=== PATIENT | male | born 1960 | race Caucasian/White ===

== ENCOUNTER → 2016-12-11 | Outpatient (CLI) | payer BC ==
--- NOTE | 2016-12-11 14:37 | US ---
EXAMINATION TYPE: US venous doppler duplex LE RT DATE OF EXAM: 12/11/2016 1:34 PM COMPARISON: NONE CLINICAL HISTORY: RT Foot Pain M79.671. Rt foot swelling SIDE PERFORMED: Right TECHNIQUE: The bilateral lower extremity deep venous system is examined utilizing real time linear a rray sonography with graded compression, doppler sonography and color-flow sonography. VESSELS IMAGED: External Iliac Vein (EIV) Common Femoral Vein Deep Femoral Vein Greater Saphenous Vein * Femoral Vein Popliteal Vein Small Saphenous Vein * Proximal Calf Veins (* superficial vessels) Right Leg: Appears negative for DVT Left Leg: Not imaged IMPRESSION: 1. Right lower extremity negative for deep venous thrombosis.
== END | disposition home or self-care (01) ==
LOC: RADUSWWP 12:56
PROVIDERS: ATTEND Orthopaedic Surgery
DX: M79.671 Pain in right foot (principal); R60.9 Edema, unspecified; I80.9 Phlebitis and thrombophlebitis of unspecified site